=== PATIENT | male | born 1995 | race Caucasian/White ===

== ENCOUNTER 2017-02-18 01:40 | Emergency (ER) | payer BC, OTHER ==
[~2017-02-18] VITALS: Ht 185.4 cm; Wt 75.6 kg
[2017-02-18 01:51] VITALS: O2SAT 99; Ht 185.4 cm; Wt 75.6 kg
[2017-02-18 02:17] LABS: CALCIUM 8.2 mg/dl (8.5-10.1); CREATININE 1.01 mg/dl (0.60-1.40); POTASSIUM 3.8 mmol/L (3.5-5.1)
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
[2017-02-18 10:22] VITALS: BP 141/89; PULSE 103; TEMP 37.3; O2SAT 98
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
== END 2017-02-18 10:24 | disposition home or self-care (01) ==
LOC: EDBD 01:44 → C.EDA 01:44
DX: F10.929 Alcohol use, unspecified with intoxication, unspecified (principal); S00.81XA Abrasion of other part of head, initial encounter; X58.XXXA Exposure to other specified factors, initial encounter